=== PATIENT | female | born 1960 | race Caucasian/White ===

== ENCOUNTER → 2017-06-05 | Outpatient (CLI) | payer OTHER ==
[~2017-06-05] MED LIST: ALLERGY25 MG PO; COATED ASPIRIN325 M1 PO; CYANOCOBAL1000 MCG/M INJ; METHIMAZOLE10 MG PO; NABUMETONE PO; NORCO 7.5-3251 EACH PO; PERCOCET10 PO; TYL325 PO
--- NOTE | ~2017-06-05 | CR63 ---
[facility] A Service of [facility] RADIOLOGY TEXT RESULTS PATIENT: BACILIO HAWKINS LOCATION: [facility] : 60 UNIT #: [id number] AGE: [address]: Robert Escalera MD SEX: F ORDER DR: [id number] [place] [id number] [facility]. [place], [place] [address] [id number] O MR#: [id number] Acc #: [id number] NAME: BACILIO HAWKINS : 1960 SEX: F STUDY DATE/TIME: 06/05/2017 12:06 UNIT: [facility] ROOM: STUDY DESCRIPTION: CR Chest 2 View Attending Physician: Robert Escalera M.D. Referring Physician: Robert Escalera M.D. Ordering Physician: Robert Escalera M.D. MEDICAL IMAGING REPORT This report is preliminary unless electronic signature is present EXAM Chest HISTORY 57-year-old woman, preop clearance total left knee arthroplasty. Osteoarthritis left knee. COMPARISON Chest, none. FINDINGS Two-view chest includes an additional PA view centered high to include costophrenic angles. Cardiac size and configuration are normal. Hilar structures are preserved. Lungs are hyperinflated with flattening of both marguerite-diaphragms and increase in AP chest diameter. There are no infiltrates. Generalized demineralization present. IMPRESSION Significant of pulmonary hyperinflation consistent with COPD. No acute chest finding. Dictated by... Brendon Anderson M.D. THIS IS AN ELECTRONICALLY VERIFIED REPORT Brendon Anderson M.D. at 06/05/2017 5:01 PM MANUEL/hawk TD: 06/05/2017 16:31 JOB #: [id number] MEDICAL IMAGING REPORT [facility] A Service of [facility] RADIOLOGY TEXT RESULTS PATIENT: BACILIO HAWKINS LOCATION: [facility] : 60 UNIT #: [id number] AGE: [address]: Robert Escalera MD SEX: F ORDER DR: Page 1 of 1 COPY
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
--- NOTE | ~2017-06-05 | EKG ---
PATIENT: BACILIO HAWKINS UNIT #: [id number] Ventricular Rate: 52 BPM Atrial Rate: 52 BPM P-R Interval: 146 ms QRS Duration: 96 ms Q-T Interval: 404 ms QTC Calculation(Bezet): 375 ms P [place]: 77 degrees Calculated R [place]: 68 degrees Calculated T [place]: 61 degrees Diagnosis Line: Sinus bradycardia Diagnosis Line: Voltage criteria for left ventricular hypertrophy Diagnosis Line: Otherwise normal ECG Diagnosis Line: No previous ECGs available Diagnosis Line: Confirmed by MARIAE UGENIA FRYE MD ([id number]) on 06/05/2017 Diagnosis Line: 11:58:01 AM INTERPRETING MD: UDAY PACK
[2017-06-05 11:20] LABS: HEMATOCRIT 41.8 % (35.0-45.0); HEMOGLOBIN 13.4 gm/dL (12.0-16.0); MEAN CELL VOLUME 83.1 FL (83-96); MEAN CORPUSCULAR HEMOGLOBIN 26.6 PG (28-34); RED BLOOD COUNT 5.03 X10e (3.90-5.30); RED CELL DISTRIBUTION WIDTH 15.4 % (11.0-15.5); WHITE BLOOD COUNT 6.2 X10e3 (4.0-10.5)
[2017-06-05 11:24] LABS: PROTHROMBIN TIME (PATIENT) 10.9 SECONDS (10.0-11.7)
[2017-06-05 12:01] LABS: ALBUMIN SERUM 3.8 g/dL (3.5-5.0); BILIRUBIN,TOTAL 0.3 mg/dL (0.2-2.0); BUN/CREATININE RATIO 27.14; CALCIUM SERUM 9.4 mg/dL (8.4-10.2); CREATININE SERUM 0.7 mg/dL (0.6-1.4); GLOM FILT RATE Estimated 96.2 mL/min (>60); POTASSIUM 3.9 mmol/L (3.5-5.1)
[2017-06-05 12:30] LABS: URINE APPEARANCE CLEAR; URINE BILIRUBIN NEG (NEG); URINE BLOOD NEG (NEG); URINE COLOR YELLOW; URINE GLUCOSE NEG (NEG); URINE KETONE NEG (NEG); URINE LEUKOCYTE ESTERASE NEG (NEG); URINE NITRATE NEG (NEG); URINE PH 7.5 (5-8); URINE PROTEIN NEG (NEG); URINE SPECIFIC GRAVITY 1.015 (1.003-1.035); URINE UROBILINOGEN 0.2 MG/DL (NEG)
[2017-06-05 12:35] LABS: CULTURE INDICATED? NO; URINE SOURCE CLEAN CATCH
[2017-06-05 13:49] LABS: THYROID STIMULATING HORMONE 3.25 uIU/ml (0.34-5.60)
[2017-06-05 13:55] LABS: FREE THYROXIN (T4) 0.78 ng/dL (0.58-1.64)
== END | disposition home or self-care (01) ==
LOC: CAMB 10:38
PROVIDERS: Orthopaedic Surgery
DX: Z01.818 Encounter for other preprocedural examination (principal); M17.12 Unilateral primary osteoarthritis, left knee; R00.1 Bradycardia, unspecified; Z72.0 Tobacco use; E05.90 Thyrotoxicosis, unspecified without thyrotoxic crisis or storm; J30.9 Allergic rhinitis, unspecified; D64.9 Anemia, unspecified
CPT/HCPCS: 36415; 71020; 80053; 81003; 84439; 84443; 85027; 85610; 86850; 86900; 86901; 87070; 93005

== ENCOUNTER 2017-06-19 08:09 | Inpatient (IN) | payer OTHER ==
--- NOTE | ~2017-06-19 | EKG ---
PATIENT: BACILIO HAWKINS UNIT #: [id number] Ventricular Rate: 68 BPM Atrial Rate: 68 BPM P-R Interval: 130 ms QRS Duration: 98 ms Q-T Interval: 392 ms QTC Calculation(Bezet): 416 ms P [place]: 66 degrees Calculated R [place]: 46 degrees Calculated T [place]: 47 degrees Diagnosis Line: Normal sinus rhythm Diagnosis Line: Voltage criteria for left ventricular hypertrophy Diagnosis Line: Abnormal ECG Diagnosis Line: Diagnosis Line: Confirmed by JOSE MIGUEL RHODES MD ([id number]) on Diagnosis Line: 06/21/2017 3:06:19 PM INTERPRETING MD: CARMELO PACK
--- NOTE | ~2017-06-19 | EKG ---
PATIENT: BACILIO HAWKINS UNIT #: [id number] Ventricular Rate: 46 BPM Atrial Rate: 46 BPM P-R Interval: 126 ms QRS Duration: 80 ms Q-T Interval: 492 ms QTC Calculation(Bezet): 430 ms P [place]: 61 degrees Calculated R [place]: 56 degrees Calculated T [place]: 52 degrees Diagnosis Line: Sinus bradycardia Diagnosis Line: Moderate voltage criteria for LVH, may be normal Diagnosis Line: variant Diagnosis Line: Borderline ECG Diagnosis Line: When compared with ECG of 05-JUN-2017 11:15, Diagnosis Line: QT has lengthened Diagnosis Line: Confirmed by JOSE MIGUEL RHODES MD ([id number]) on Diagnosis Line: 06/21/2017 7:29:42 AM INTERPRETING MD: CARMELO PACK
--- NOTE | ~2017-06-19 | DS ---
Unit #: [id number] #: [id number] Patient: BACILIO HAWKINS [id number] [facility] [address] [facility]. [place], [place] [address] [id number] MR#: [id number] NAME: BACILIO HAWKINS ROOM: 46 Age: 57 Sex: F Admission Date: 06/19/2017 : 1960 Discharge Date: 06/21/2017 Attending Physician: Robert Escalera M.D. Primary Care Physician: Geo Lopez M.D. DISCHARGE SUMMARY ADMITTING DIAGNOSIS Severe osteoarthritis of her left knee. This is status post traumatic arthritis. PROCEDURES Left total knee arthroplasty. HOSPITAL COURSE The patient was admitted to [facility] with a history of severe osteoarthritis of her left knee. The patient has undergone the above procedure. The patient tolerated the procedure well. Today she is in stable condition. HER temperature is 98.4, blood pressure 111/52, heart rate 64 and regular, respirations 18. Her incision is healing well. Her neurovascular exam is intact. She has 2+ pulses in her lower extremities. The patient will be going home today if safe per physical therapy. DISPOSITION Home with physical therapy/[facility]. DIAGNOSTIC STUDIES PERTINENT LABS: Hemoglobin was 10. DISCHARGE MEDICATIONS Per med/rec list. She will be on her regular home medications plus aspirin 325 mg twice a day and Percocet for pain control. FOLLOWUP INSTRUCTIONS The patient will be followed by [facility]. She will wear TEDS during the day, off at night. The patient should not drive until seen by Dr. Escalear in the office. The patient will begin physical therapy, including active and active-assist range of motion, strengthening, progressive ambulation; begin with a walker and advance to a cane. The patient will need a CPM machine for at home. Dictated by... Tushar Brumfield P.A.-C- for Ap Ly/shell TD: 06/21/2017 10:38 JOB #: [id number] Unit #: [id number] #: [id number] Patient: BACILIO HAWKINS DISCHARGE SUMMARY Page 1 of 1 X X DISCHARGE SUMMARY
--- NOTE | ~2017-06-19 | EKG ---
PATIENT: BACILIO HAWKINS UNIT #: [id number] Ventricular Rate: 43 BPM Atrial Rate: 43 BPM P-R Interval: 142 ms QRS Duration: 72 ms Q-T Interval: 452 ms QTC Calculation(Bezet): 381 ms P [place]: 70 degrees Calculated R [place]: 62 degrees Calculated T [place]: 59 degrees Diagnosis Line: Marked sinus bradycardia Diagnosis Line: Anterolateral infarct , age undetermined Diagnosis Line: Abnormal ECG Diagnosis Line: When compared with ECG of 19-JUN-2017 18:24, Diagnosis Line: (unconfirmed) Diagnosis Line: Anterolateral infarct is now Present Diagnosis Line: T wave inversion more evident in Anterior leads Diagnosis Line: Confirmed by JOSE MIGUEL RHODES MD ([id number]) on Diagnosis Line: 06/21/2017 7:30:43 AM INTERPRETING MD: CARMELO PACK
--- NOTE | ~2017-06-19 | A ---
[facility] Nutrition Therapy DATE: 06/20/17 Patient: BACILIO HAWKINS Physician: JEFF Address: [address] Room/Bed: [address] [place] [address], Zip: [place] [address] Admit Date: 06/19/17 Date of : [birth year] Height: Weight: 100 45.7 NUTRITIONAL ASSESSMENT: REASON: Low BMI Admitting Dx: 57 y/o female admitted with OA left knee, POD #1 left TKA PMH: OA, 1/2 ppd smoker, PNA w/ sepsis, MRSA, anemia, hyperthyroidism Anthropometrics: Ht: 67", Wt: 100 lbs, BMI: 15 (underweight) Labs: Na 132 Meds: Zofran prn, Milk of Mg, Senokot, Vit B12, Bisacodyl, Dexamethasone, Tapazole, Lactated ringers I/O & Bowel function: BM 06/19, WNL Skin Integrity: Closed surgical incision L knee, no edema Estimated Nutrition Needs: Increased due to underweight status and hyperthyroidism Diet: Regular Assessment: Chart reviewed, events noted. See admitting dx and PMH as stated above. RD assessing due to underweight status, however pt states she has maintained her UBW (100-103 lbs) for years and eats "like a horse," but is small due to hx of hyperthyroidism and has always been small. Has established care with endocrinology in [place], is on Tapazole to manage hyperthyroidism. She is aware of high kcal foods, however states it is almost impossible for her to gain weight. RD suggested adding Ensure BID while at [facility] and at home- pt agreed- will order. She appears well-nourished. RD encouraged increased kcal/protein intake to maintain weight, pt agreed. Will follow hospital course. Dx: Underweight r/t hyperthyroidism AEB BMI 15. Intervention: Ensure BID, snacks prn Monitoring, Evaluation and Goals: 1. PO intake 75-100% of meals/supps. 2. Gradual weight gain towards a healthy BMI range. Monitor: Per protocol, criteria to determine if above goals met [facility] Nutrition Therapy DATE: 06/20/17 Patient: BACILIO HAWKINS Physician: JEFF Address: [address] Room/Bed: [address] [place] [address], Zip: [place] [phone] Admit Date: 06/19/17 Date of : [birth year] Height: Weight: 100 45.7 Recommendations: 1. Continue regular diet, encourage snacks prn. RD ordering chocolate Ensure Enlive BID to help promote weight gain. 2. Continue Tapazole to manage hyperthyroidism per endo. 3. Please weigh q 3 days for monitoring purposes, as the patient is clinically underweight. RD will follow Mild nutrition risk Respectfully, Namita Oneill RD, LD Food and Nutritional Services [facility] cc: client file
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
[~2017-06-19 08:09] MED LIST changes: -COATED ASPIRIN325 M1 PO; -PERCOCET10 PO; -TYL325 PO
[2017-06-19 09:34] LABS: PROTHROMBIN TIME (PATIENT) 10.9 SECONDS (10.0-11.7)
[2017-06-19 22:45] LABS: BASOPHIL% 0.2 % (0-2.5); EOSINOPHIL% 0.1 % (0.0-7.0); HEMATOCRIT 33.1 % (35.0-45.0); LYMPHOCYTE% 11.3 % (17.0-45.0); MEAN CELL VOLUME 82.7 FL (83-96); MEAN CORPUSCULAR HEMOGLOBIN 27.4 PG (28-34); MEAN CORPUSCULAR HGB CONC 33.2 g/dL (30-36); MEAN PLATELET VOLUME 6.6 FL (6.5-11.5); MONOCYTE# 0.6 X10e3 (0-1.0); MONOCYTE% 6.5 % (3.0-12.0); NEUTROPHIL# 7.5 X10e3 (1.5-7.1); NEUTROPHIL% 81.9 % (40-75); PLATELET COUNT 202 X10e3 (140-420); RED CELL DISTRIBUTION WIDTH 15.5 % (11.0-15.5); WHITE BLOOD COUNT 9.1 X10e3 (4.0-10.5)
[2017-06-19 22:46] LABS: DIFF IND NO
[2017-06-19 23:17] LABS: CALCIUM SERUM 8.1 mg/dL (8.4-10.2); CREATININE SERUM 0.5 mg/dL (0.6-1.4); GLOM FILT RATE Estimated 107.4 mL/min (>60); MAGNESIUM 1.7 mg/dL (1.6-3.0); POTASSIUM 4.2 mmol/L (3.5-5.1)
[2017-06-20 03:35] LABS: BASOPHIL% 0.1 % (0-2.5); DIFF IND NO; HEMATOCRIT 32.6 % (35.0-45.0); HEMOGLOBIN 10.4 gm/dL (12.0-16.0); LYMPHOCYTE# 1.7 X10e3 (1.0-3.5); LYMPHOCYTE% 15.4 % (17.0-45.0); MEAN CELL VOLUME 83.8 FL (83-96); MEAN CORPUSCULAR HEMOGLOBIN 26.7 PG (28-34); MEAN CORPUSCULAR HGB CONC 31.9 g/dL (30-36); MEAN PLATELET VOLUME 7.3 FL (6.5-11.5); MONOCYTE# 0.9 X10e3 (0-1.0); MONOCYTE% 8.1 % (3.0-12.0); NEUTROPHIL# 8.5 X10e3 (1.5-7.1); NEUTROPHIL% 76.4 % (40-75); PLATELET COUNT 208 X10e3 (140-420); RED BLOOD COUNT 3.89 X10e (3.90-5.30); RED CELL DISTRIBUTION WIDTH 15.4 % (11.0-15.5); WHITE BLOOD COUNT 11.2 X10e3 (4.0-10.5)
[2017-06-20 04:01] LABS: ALBUMIN SERUM 2.9 g/dL (3.5-5.0); BILIRUBIN,TOTAL 0.8 mg/dL (0.2-2.0); CALCIUM SERUM 8.1 mg/dL (8.4-10.2); CREATININE SERUM 0.6 mg/dL (0.6-1.4); GLOM FILT RATE Estimated 101.2 mL/min (>60); POTASSIUM 3.7 mmol/L (3.5-5.1); PROTEIN TOTAL SERUM 5.7 g/dL (6.0-8.3)
[2017-06-21 03:45] LABS: HEMATOCRIT 31.3 % (35.0-45.0)
[2017-06-21 05:11] LABS: BUN/CREATININE RATIO 18.33; CALCIUM SERUM 8.5 mg/dL (8.4-10.2); CREATININE SERUM 0.6 mg/dL (0.6-1.4); GLOM FILT RATE Estimated 101.2 mL/min (>60); MAGNESIUM 1.7 mg/dL (1.6-3.0); POTASSIUM 3.8 mmol/L (3.5-5.1)
[2017-06-21 14:53] LABS: CK TOTAL 51 IU/L (26-140)
[2017-06-21] MEDS ORDERED: COATED ASPIRIN325 M1 PO (17:50)
[2017-06-21] MEDS ORDERED: TYL325 PO (17:52)
[2017-06-21] MEDS ORDERED: PERCOCET10 PO (17:54)
== END 2017-06-21 19:40 | disposition home health service (06) | DRG 470 ==
LOC: CSUR 08:09 → CPACUOF 08:28 → CSUR 10:00 → CPACUOF 10:20 → C4C 10:20 → CSUR 11:30 → C4B 16:21 → CPACUOF 16:21 → C4C 06-21 06:39
PROVIDERS: Family Medicine; Internal Medicine; Nurse Practitioner; Orthopaedic Surgery
PROC: 0SRD0J9 Replacement of Left Knee Joint with Synthetic Substitute, Cemented, Open Approach (ICD-10-PCS; principal; 2017-06-19 10:00)
DX: M17.32 Unilateral post-traumatic osteoarthritis, left knee (principal); D62 Acute posthemorrhagic anemia; S82.002S Unspecified fracture of left patella, sequela; S82.202S Unspecified fracture of shaft of left tibia, sequela; V49.9XXS Car occupant (driver) (passenger) injured in unspecified traffic accident, sequela; F17.200 Nicotine dependence, unspecified, uncomplicated; E05.90 Thyrotoxicosis, unspecified without thyrotoxic crisis or storm; E53.8 Deficiency of other specified B group vitamins; R00.1 Bradycardia, unspecified; R94.31 Abnormal electrocardiogram [ECG] [EKG]; E83.42 Hypomagnesemia; Z86.14 Personal history of Methicillin resistant Staphylococcus aureus infection
CPT/HCPCS: 80048; 80053; 82550; 83735; 84484; 85014; 85018; 85025; 85610; 93005; 94761; 94762; 97110; 97116; 97161; 97165; 97535; C1713; C1776; G8978-GP; G8979-GP; G8980-GP; G8987-GO; G8988-GO; G8989-GO; J0131; J0171; J0690; J0735; J1100; J1885; J2250; J2405; J2795; J3010; J3370; J3475